=== PATIENT | male | born 1980 | race African-American/Black ===

== ENCOUNTER 2020-04-02 06:21 | Outpatient (REF) | payer OTHER, SELFPAY ==
[2020-04-02 07:00] LABS: COVID-19 Test Negative (Negative)
== END 2020-04-02 06:22 | disposition home or self-care (01) ==
LOC: HO.LAB 06:21
PROVIDERS: Visit Provider Internal Medicine
DX: Z20.828 Contact with and (suspected) exposure to other viral communicable diseases (principal)
CPT/HCPCS: 87635

== ENCOUNTER 2020-04-06 06:41 | Outpatient (REF) | payer OTHER, SELFPAY ==
[2020-04-06 07:20] LABS: COVID-19 Test Negative (Negative)
== END 2020-04-06 06:42 | disposition home or self-care (01) ==
LOC: HO.LAB 06:41
PROVIDERS: Visit Provider Internal Medicine
DX: Z20.828 Contact with and (suspected) exposure to other viral communicable diseases (principal)
CPT/HCPCS: 87635

== ENCOUNTER 2020-04-13 17:12 | Outpatient (REF) | payer OTHER, SELFPAY ==
[2020-04-13 17:57] LABS: COVID-19 Test Negative (Negative)
== END 2020-04-13 17:13 | disposition home or self-care (01) ==
LOC: HO.LAB 17:12
PROVIDERS: Visit Provider Internal Medicine
DX: Z20.828 Contact with and (suspected) exposure to other viral communicable diseases (principal)
CPT/HCPCS: 87635

== ENCOUNTER 2020-06-25 09:42 | Outpatient (REF) | payer OTHER, SELFPAY ==
[2020-06-25 10:05] LABS: COVID-19 Test Negative (Negative)
== END 2020-06-25 09:43 | disposition home or self-care (01) ==
LOC: HO.EMPCOV 09:42
PROVIDERS: Visit Provider Internal Medicine
DX: Z20.822 Contact with and (suspected) exposure to COVID-19 (principal)
CPT/HCPCS: 36415; 87635; C9803

== ENCOUNTER 2020-06-29 07:25 | Outpatient (REF) | payer OTHER, SELFPAY ==
[2020-06-29 07:45] LABS: COVID-19 Test Negative (Negative)
== END 2020-06-29 07:26 | disposition home or self-care (01) ==
LOC: HO.EMPCOV 07:25
PROVIDERS: Visit Provider Internal Medicine
DX: Z20.822 Contact with and (suspected) exposure to COVID-19 (principal)
CPT/HCPCS: 36415; 87635; C9803

== ENCOUNTER 2021-05-31 16:32 | Outpatient (REF) | payer OTHER, SELFPAY ==
[2021-05-31 17:12] LABS: COVID-19 Test Negative (Negative)
== END 2021-05-31 16:33 | disposition home or self-care (01) ==
LOC: HO.LAB 16:32
PROVIDERS: Visit Provider Internal Medicine
DX: Z20.822 Contact with and (suspected) exposure to COVID-19 (principal)
CPT/HCPCS: 36415; 87635

== ENCOUNTER 2021-06-20 15:28 | Outpatient (REF) | payer OTHER, SELFPAY ==
[2021-06-20 15:57] LABS: COVID-19 Test Negative (Negative)
== END 2021-06-20 15:29 | disposition home or self-care (01) ==
LOC: HO.LAB 15:28
PROVIDERS: Referring Provider Internal Medicine; Visit Provider Internal Medicine
DX: Z20.822 Contact with and (suspected) exposure to COVID-19 (principal)
CPT/HCPCS: 87635

== ENCOUNTER → 2022-03-31 13:17 | Outpatient (RCR) | payer OTHER, SELFPAY ==
[2020-06-20 08:41] LABS: COVID-19 Test Negative (Negative)
[2020-06-28 09:56] LABS: SARS-COV-2 PCR UMBRL NEGATIVE
== END | disposition home or self-care (01) ==
LOC: HO.EMPCOV 06-20 08:08
PROVIDERS: Visit Provider Internal Medicine
DX: Z20.828 Contact with and (suspected) exposure to other viral communicable diseases (principal)
CPT/HCPCS: 36415; 87635; C9803; U0003